=== PATIENT | female | born 1950 | race Two or more races ===

== ENCOUNTER 2021-05-19 13:51 | Outpatient (CLI) | payer MEDICARE, BC | END 2021-05-19 23:59 | disposition home or self-care (01) | LOC: WOU 13:51 | PROVIDERS: ATTEND Podiatrist Foot & Ankle Surgery | DX: M77.42 Metatarsalgia, left foot (principal); M20.12 Hallux valgus (acquired), left foot; M79.672 Pain in left foot | CPT/HCPCS: G0463 ==